=== PATIENT | male | born 1965 | race Two or more races ===

== ENCOUNTER 2025-03-01 10:20 | Inpatient (IN) | payer MEDICARE, OTHER ==
[~2025-03-01] VITALS: Ht 167.6 cm; Wt 63.5 kg
[2025-03-01 10:41] LABS: PLATELET COUNT (AUTO) 622 K/uL (150-450); RED BLOOD CELL COUNT(AUTO) 4.10 MIL/uL (4.5-6.0); RED CELL DISTRIBUTION WIDTH 15.9 % (11.5-15.0); WHITE BLOOD COUNT (AUTO) 13.4 K/uL (4.3-11.0)
[2025-03-01] MEDS: IV NS 0.9% 1,000 ML BAG IV ONE (10:44)
[2025-03-01 10:49] LABS: CALCIUM, SERUM 8.3 mg/dL (8.5-10.1); CREATININE 0.7 mg/dL (0.6-1.3); SODIUM SERUM 127 mmol/L (136-145); UREA NITROGEN, BLOOD 15 mg/dL (7-18)
[2025-03-01 10:54] LABS: INR 1.06 (0.91-1.10)
[2025-03-01 11:00] LABS: LACTIC ACID 2.9 mmol/L (0.4-2.0)
[2025-03-01 11:04] LABS: ASPARTATE AMINOTRANSFERASE 42 U/L (15-37); TOTAL PROTEIN, SERUM 6.1 g/dL (6.4-8.2)
[2025-03-01] MEDS ORDERED: CEFTRIAXONE 1GM BAG (ER ONLY) 50 ML IV ONE (11:07)
[2025-03-01] MEDS: CEFTRIAXONE 1GM BAG (ER ONLY) 1 GM/50 ML PIGGYBACK IV ONE (11:11)
[2025-03-01] MEDS ORDERED: HALO10TA13 PO (11:40)
[2025-03-01] MEDS ORDERED: QUET200T PO (11:40)
[2025-03-01] MEDS ORDERED: LOSA50TA39 PO (11:40)
[2025-03-01] MEDS ORDERED: EMPA25TA PO (11:40)
[2025-03-01] MEDS ORDERED: DICL100G34 TP (11:40)
[2025-03-01] MEDS ORDERED: OMEP20TA5 PO (11:40)
[2025-03-01] MEDS ORDERED: TAMS-12 PO (11:40)
[2025-03-01] MEDS ORDERED: BENZ0.5T43 PO (11:40)
[2025-03-01] MEDS ORDERED: NAPR-1009 PO (11:40)
[2025-03-01] MEDS ORDERED: ICOS1CAP PO (11:40)
[2025-03-01] MEDS ORDERED: METF-442 PO (11:40)
[2025-03-01] MEDS ORDERED: ATOR20TA PO (11:40)
[2025-03-01] MEDS ORDERED: LORA-258 PO (11:40)
[2025-03-01] MEDS ORDERED: ALBU18HF2 IH (11:40)
[2025-03-01] MEDS ORDERED: METO25TA6 PO (11:40)
[2025-03-01] MEDS ORDERED: LAMO100T17 PO (11:40)
[2025-03-01 11:59] LABS: APPEARANCE,URINE CLEAR (CLEAR); BLOOD, URINE Negative Ery/uL (NEGATIVE); LEUKOCYTE ESTERASE ,URINE Negative (NEGATIVE); NITRITE, URINE NEGATIVE (NEGATIVE); UGLUCOSE 500 MG/DL mg/dL (NEGATIVE)
[2025-03-01 12:05] LABS: ADD URINE CULTURE NO; SQUAMOUS EPITHELIAL CELL,UR 0-2 /HPF (None Seen)
[2025-03-01 12:57] LABS: EOSINOPHILS % (MANUAL) 1 % (0-4); LYMPHOCYTES % (MANUAL) 8 % (16-48); MONOCYTES % (MANUAL) 6 % (0-11.0); NEUTROPHILS % (MANUAL) 85 (42-76)
[2025-03-01 12:58] LABS: PLATELET ESTIMATE INCREASED
[2025-03-01] MEDS ORDERED: MAGNESIUM HYDROXIDE 30 ML UDC PO PRN (13:00)
[2025-03-01] MEDS ORDERED: MAG HYDROX/AL HYDROX/SIMETH 30 ML UDC PO PRN (13:00)
[2025-03-01] MEDS ORDERED: ONDANSETRON HCL/PF 4 MG/2 ML VIAL IVP PRN (13:00)
[2025-03-01] MEDS ORDERED: ACETAMINOPHEN 325 MG TABLET PO PRN (13:00)
[2025-03-01] MEDS ORDERED: DICLOFENAC TOPICAL 100 GM TUBE TP PRN (13:30)
[2025-03-01] MEDS ORDERED: LORAZEPAM 0.5 MG TABLET PO PRN (13:30)
[2025-03-01] MEDS ORDERED: ALBUTEROL FS 2.5 MG/3 ML VIAL.NEB NEB PRN (14:00)
[2025-03-01 16:00] VITALS: BP 102/65; TEMP 98.2; O2SAT 98
[2025-03-01] MEDS: ALBUMIN 25% 25 GM in PREMIX 1 EA IV SCH (16:08)
[2025-03-01] MEDS: ENOXAPARIN SODIUM 40 MG/0.4 ML DISP.SYRIN SQ SCH (16:10)
[2025-03-01] MEDS: METFORMIN 500 MG TABLET PO SCH (16:11)
[2025-03-01] MEDS: BENZTROPINE MESYLATE (1 MG) 1 MG TABLET PO SCH (16:11)
[2025-03-01] MEDS: HALOPERIDOL 5 MG TABLET PO SCH (16:18)
[2025-03-01] MEDS: NAPROXEN 500 MG TABLET PO SCH (16:19)
[2025-03-01] MEDS: IV NS 0.9% 1,000 ML IV PRN (16:21)
[2025-03-01 20:00] VITALS: BP 103/60; TEMP 98.2; O2SAT 97
[2025-03-01] MEDS: QUETIAPINE FUMARATE 100 MG TABLET PO SCH (22:06)
[2025-03-01] MEDS: ATORVASTATIN 40 MG TABLET PO SCH (22:06)
[2025-03-02] VITALS: BP 110/61; TEMP 98.3; O2SAT 97
[2025-03-02 04:00] VITALS: BP 101/61; TEMP 98.1; O2SAT 100
[2025-03-02 06:12] LABS: PLATELET COUNT (AUTO) 540 K/uL (150-450); RED BLOOD CELL COUNT(AUTO) 3.60 MIL/uL (4.5-6.0); RED CELL DISTRIBUTION WIDTH 16.2 % (11.5-15.0); WHITE BLOOD COUNT (AUTO) 9.3 K/uL (4.3-11.0)
[2025-03-02 06:24] LABS: CALCIUM, SERUM 8.6 mg/dL (8.5-10.1); CREATININE 0.6 mg/dL (0.6-1.3); PHOSPHORUS 3.8 mg/dL (2.5-4.9); SODIUM SERUM 133.0 mmol/L (136-145); UREA NITROGEN, BLOOD 11.0 mg/dL (7-18)
[2025-03-02 06:25] LABS: LACTIC ACID 0.9 mmol/L (0.4-2.0)
[2025-03-02 06:27] LABS: IRON, SERUM 16.0 ug/dl (50-175)
[2025-03-02 08:00] VITALS: BP 100/72; TEMP 97.5; O2SAT 100
[2025-03-02] MEDS: TAMSULOSIN 0.4 MG CAP.SR.24H PO SCH (08:50)
[2025-03-02] MEDS: PANTOPRAZOLE 40 MG TABLET.DR PO SCH (08:50)
[2025-03-02] MEDS: EMPAGLIFLOZIN 25 MG TABLET PO SCH (09:14)
[2025-03-02] MEDS: MAGNESIUM OXIDE 400 MG TABLET PO ONE (09:18)
[2025-03-02 10:34] LABS: LYMPHOCYTES % (MANUAL) 4 % (16-48); MONOCYTES % (MANUAL) 1 % (0-11.0); MYELOCYTES % 3 % (0-0); NEUTROPHILS % (MANUAL) 92 (42-76)
[2025-03-02 10:35] LABS: PLATELET ESTIMATE INCREASED
[2025-03-02] MEDS: CEFTRIAXONE 1 G in IV D5W 50 ML IV SCH (10:39)
[2025-03-02 12:00] VITALS: BP 114/74; TEMP 98.1; O2SAT 99
[2025-03-02 16:00] VITALS: BP 110/69; TEMP 98.8; O2SAT 99
[2025-03-02 20:00] VITALS: BP 111/76; TEMP 98.2; O2SAT 99
[2025-03-03] VITALS: BP 100/68; TEMP 98; O2SAT 98
[2025-03-03 04:00] VITALS: BP 106/66; TEMP 98.1; O2SAT 98
[2025-03-03 06:52] LABS: PLATELET COUNT (AUTO) 622 K/uL (150-450); RED BLOOD CELL COUNT(AUTO) 3.98 MIL/uL (4.5-6.0); RED CELL DISTRIBUTION WIDTH 16.0 % (11.5-15.0); WHITE BLOOD COUNT (AUTO) 7.7 K/uL (4.3-11.0)
[2025-03-03 07:07] LABS: CALCIUM, SERUM 9.0 mg/dL (8.5-10.1); CREATININE 0.6 mg/dL (0.6-1.3); PHOSPHORUS 3.6 mg/dL (2.5-4.9); SODIUM SERUM 136.0 mmol/L (136-145); UREA NITROGEN, BLOOD 11.0 mg/dL (7-18)
[2025-03-03 08:00] VITALS: BP 110/60; TEMP 98.5; O2SAT 98
[2025-03-03 12:00] VITALS: BP 106/74; TEMP 98; O2SAT 98
[2025-03-03] MEDS ORDERED: AMOX-427 PO (12:51)
[2025-03-03] MEDS: AZITHROMYCIN 500 MG in IV D5W 250 ML IV SCH (15:11)
[2025-03-03 16:00] VITALS: BP 116/75; TEMP 98.2; O2SAT 98
[2025-03-03 20:00] VITALS: BP 112/69; TEMP 99.3; O2SAT 98
[2025-03-04 04:00] VITALS: BP 105/45; TEMP 98.7; O2SAT 94; O2SAT 98
[2025-03-04 07:30] VITALS: BP 106/69; TEMP 97.9; O2SAT 100
[2025-03-04 09:41] VITALS: TEMP 98.7
== END 2025-03-04 14:30 | DRG 640 ==
LOC: ER 10:23 → TELE1 12:41 → MEDSG1 03-03 15:18
PROVIDERS: ADMIT Nurse Practitioner Family; ATTEND Student in an Organized Health Care Education/Training Program
DX: E86.0 Dehydration (principal); J15.9 Unspecified bacterial pneumonia; E44.1 Mild protein-calorie malnutrition; E87.20 Acidosis, unspecified; E87.1 Hypo-osmolality and hyponatremia; D64.9 Anemia, unspecified; F39 Unspecified mood [affective] disorder; E11.9 Type 2 diabetes mellitus without complications; E78.5 Hyperlipidemia, unspecified; F20.9 Schizophrenia, unspecified; Z79.84 Long term (current) use of oral hypoglycemic drugs; Z79.899 Other long term (current) drug therapy; Z79.51 Long term (current) use of inhaled steroids; E88.09 Other disorders of plasma-protein metabolism, not elsewhere classified; I10 Essential (primary) hypertension; I95.9 Hypotension, unspecified; R60.9 Edema, unspecified
CPT/HCPCS: 36415; 71045-TC; 80048-TC; 80076-TC; 81001; 82040-TC; 83540-TC; 83605-TC; 83735-TC; 83935-TC; 84100-TC; 84300-TC; 84484-TC; 85025-TC; 85027-TC; 85730-TC; 87040-TC; 87081-TC; 87086-TC; 93307-TC; A4216; A4223; G0378; J0456; J0696; J1650; J7030; J7060; P9047